=== PATIENT | male | born 1960 | race Caucasian/White ===

== ENCOUNTER 2019-11-14 20:39 | Observation (INO) | payer OTHER ==
--- NOTE | 2019-11-14 20:44 | PDOC ---
History of Present Illness - General Chief Complaint: Syncope/Near Syncope Stated Complaint: SYNCOPY Time Seen by Provider: 11/14/19 20:43 - History of Present Illness Initial Comments: 59 YOM h/o hypothyroidism, hyperlipidemia, and hypertension BIBEMS for witnessed fall. Per patients brother, after patient got off work today he was drinking smirnoff ice in a parking lot. The brother reports that he had between 3-4 drinks. At one point when he was leaning against a car, he suddenly became stiff, flexed his arms rigidly, lost consciousness and fell to his knees. His brother ran to him and held him underneath his arm. According to his brother the patient only fell to his knees, and did not strike his head. He lost consciou sness for a total of 30 seconds and then was awake but disoriented for approximately one minute after. Per EMS his blood pressure at the scene while seated was 126/76 and 96/60s while standing. His heart rate was 96. An EKG was performed in the ambulance showing normal sinus rythm. He received 150 mls saline en route. Speaking with the patient he mentions some back pain, pain in his knees bilate rally, as well as some pain in his right foot and ankle. He denies CP, SOB, N/V/D, or dizziness. Patient brought list of medications which read as follows: ASA Cetirizine Atorvastatin Levothyroxine Multivitamin Amlodipine Neproxen ezetimibe Past History - Medical History Allergies/Adverse Reactions: Allergies Allergy/AdvReac Type Severity Reaction Status Date / Time Penicillins Allergy Unknown Verified 07/16/15 09:30 Home Medications: Ambulatory Orders Acetaminophen W/ Codeine #3 [Tylenol # 3 -] 1 - 2 tab PO Q4H PRN #10 tablet MDD 6 07/16/15 Anemia: No Asthma: No Cancer: No HTN: Yes Hypercholesterolemia: Yes Thyroid Disease: Yes (hypothyroid) - Surgical History Abdominal Surgery: Yes (HERNIA.) - Psycho-Social/Smoking History Smoking History: Former smoker Have you smoked in the past 12 months: No If you are a former smoker, when did you quit?: 1999 Review of Systems - Review of Systems Able to Perform ROS?: Yes Constitutional: Yes: See HPI HEENTM: Yes: See HPI Respiratory: Yes: See HPI Cardiac (ROS): Yes: See HPI ABD/GI: Yes: See HPI : Yes: See HPI Musculoskeletal: Yes: See HPI Integumentary: Yes: See HPI Neurological: Yes: See HPI Endocrine: Yes: See HPI Hematologic/Lymphatic: Yes: See HPI *Physical Exam - Physical Exam General Appearance: Yes: Nourished, Appropriately Dressed, Obese HEENT: positive: EOMI, Normal Voice, Symmetrical Respiratory/Chest: positive: Lungs Clear, Normal Breath Sounds Cardiovascular: positive: Regular Rhythm, Regular Rate, S1, S2 Gastrointestinal/Abdominal: positive: Normal Bowel Sounds, Tender, Soft Musculoskeletal: positive: Other (Pain to palpation in knees bilaterally ) Neurologic: 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 Patient lost consciousness for approximately 30 seconds and was disoriented for up to one minute following regaining consciousness. His brother witnesses his fall reporting that he flexed his arms rigidly prior to collapsing to his knees. His brother reports that he did not hit his head. He mentions pain in both knees, right ankle, and some abdominal discomfort. He reports that he did not bite his tongue nor was he incontinent of stool or urine. His brother does not rely history consistent with post ictal state. Denies CP, SOB, N/V/D or dizziness. One week prior to arrival he had a similar episode however was not medically evaluated at the time. Physical exam was unremarkable except for swelling and pain in his knees bilaterally and some tenderness in his right ankle. On neuro exam cranial nerves were intact, sensation intact bilaterally, strength 5/5 bilaterally. Differential includes but is not limited to: Orthostatic syncope, Cardiogenic s yncope, new seizure, Abdominal Aortic Aneurysm vs Dissection. Plan: Labs, Lactate, PT/APTT, ECG. CXR, X ray knees bilaterally, Xray right ankle, CT head, CTA chest/abdomen/pelvis, US abdomen and FAST exam. 1 L NS for fluid resuscitation. Dispo: Will admit for further observation given history of 2 syncopal events in one week of unknown etiology. 11/14/19 23:31 Discharge - Discharge Information Problems reviewed: Yes Clinical Impression/Diagnosis: Syncope and collapse - Follow up/Referral - Patient Discharge Instructions - Post Discharge Activity
[2019-11-14 21:04] VITALS: BMI 34.0
[2019-11-14 22:05] LABS: BASO % 2.6 % (0-2.0); EOS % 2.5 % (0-4.5); HEMATOCRIT 42.9 % (35.4-49); HEMOGLOBIN 14.5 GM/dL (11.7-16.9); LYMPH % 19.8 % (8-40); MCHC 33.9 g/dl (32.0-35.9); MEAN CELL VOLUME 85.6 fl (80-96); MEAN PLT VOLUME 7.8 fl (7.5-11.1); MONO % 9.5 % (3.8-10.2); NEUT % 65.6 % (42.8-82.8); PLATELET COUNT 273 K/MM3 (134-434); RBC 5.01 M/mm3 (4.00-5.60); WHITE BLOOD COUNT 5.6 K/mm3 (4.0-10.0)
[2019-11-14 22:13] LABS: INR 1.04 (0.83-1.09); PROTHROMBIN TIME (PATIENT) 12.3 SEC (9.7-13.0)
[2019-11-14 22:15] LABS: ACTIVATED PTT 26.6 SECONDS (25.2-36.5)
--- NOTE | 2019-11-14 22:28 | PDOC ---
Documentation entered by Lizett Moctezuma SCRIBE, acting as scribe for Nicole Mcginnis MD. Nicole Mcginnis MD: This documentation has been prepared by the Jorge pickard Nirvannie, SCRIBE, under my direction and personally reviewed by me in its entirety. I confirm that the documentation accurately reflects all work, treatment, procedures, and medical decision making performed by me. Attending Attestation - Resident Resident Name: Andriy Harp - ED Attending Attestation I have performed the following: I have examined & evaluated the patient, The case was reviewed & discussed with the resident, I agree w/resident's findings & plan, Exceptions are as noted - HPI HPI: 11/14/19 22:38 The patient is a 59 year old male with a significant past medical history of hypothyroidism, hypertension, and hyperlipidemia who presents to the ED s/p episode of LOC. As per patient, he drank approximately 4 Smirnoff Ice in approximately 20 min then felt mild abdominal pain. Following the abdominal pain he endorses tensing up his upper extremities and bringing it close to his body then falling onto his right side, then knees, then left side. Patient was unconscious for approximately 1 min and the episode was witnessed by his brother who attempted to lower him to the ground. Patient was confused after this episode for a few min but, denies any bowel/urinary incontinence. Patient endorses a similar episode a week ago at which time he was walking then blacked out but, upon awakening that time he was fully orientated thus, he went straight home. Patient notes a family history of [place] in the 60s (EF 17: 68%). While in the ED, patient endorses bilateral knee and right ankle pain. - Physicial Exam PE: 11/14/19 22:11 awake alert NAD head atraumatic. no midline spinal tenderness. lungs clear bilat . heart rrr no mrg abd soft obese mild periumbilical ttp. no palp pulsatile mass. nd ext wwp. no edema. no calf tenderness. pulses symmetric pt awake alert oriented. bilat lower ext knee ttp. FROM. no laxity. hips bilat nontender. pelvis stable. right ankle TTP. pain with flex/ ext. no eccymosis or swelling noted. - Medical Decision Making 11/14/19 22:16 59 yo male h/o htn hld hypothyroid here today with syncope / seizure. per pt brother who witnessed event. pt had draink 4 etoh beverages over 20 min, was leaning against a car outside front of house. suddenly arms flexed, and he slid to right landedon his knees, then fell to his left. did have breif loc, was out for few min. no bowel or bladder incontinence. similar episode one week ago while walking. pt did not get evaluated at that time. no cp or sob. episode preciptiated by abd pain, periumbilical pain.. now also c/o bilat knee pain, and right ankle pain. denies drug use. on exam pt awake alert nonfocal nuero exam. lungs heart normal. mild left periumbilical ttp. differential traumatic ich , knee fx, ankle injury. concerns for synopce vs. seizure. ct head. labs ekg trop basic labs. will addlactic acid. iv hyrdaton. tox screen and etoh level. screening us fast performed. no free fluid. no aaa noted. Heart Score/ECG Review #1 General ECG Interpretation: Sinus Rhythm, Normal Rate (82), Normal Intervals, No acute ischemic changes Compared to previous ECG there are: Other (RBBB, TWI v1 - v3.) Discharge - Discharge Information Problems reviewed: Yes Clinical Impression/Diagnosis: Syncope and collapse Condition: Stable Disposition: HOME - Follow up/Referral - Patient Discharge Instructions - Post Discharge Activity
[2019-11-14 22:36] LABS: ALBUMIN 4.2 g/dl (3.4-5.0); ALK PHOS 74 U/L (45-117); ANION GAP 11 MMOL/L (8-16); BILIRUBIN,TOTAL 0.5 mg/dL (0.2-1); BLOOD UREA NITROGEN 17.6 mg/dL (7-18); CALCIUM 9.5 mg/dL (8.5-10.1); CHLORIDE 107 mmol/L (98-107); CO2 24 mmol/L (21-32); GLUCOSE,RANDOM 89 mg/dL (74-106); N-TERMINAL BNP 51.6 pg/ml (5-125); POTASSIUM 3.8 mmol/L (3.5-5.1); SGOT/AST 39 U/L (15-37); SGPT/ALT 65 U/L (13-61); SODIUM 142 mmol/L (136-145); TOT PROT 7.8 g/dl (6.4-8.2)
[2019-11-14] MEDS ORDERED: SODIUM CHLORIDE 0.9% 500 ML INFUS.BAG IV ONE (22:40)
--- NOTE | 2019-11-15 01:20 | HP ---
Admitting History and Physical - Primary Care Physician PCP: Brandon Marcelo - Admission Chief Complaint: Syncope History of Present Illness: This is a 59 y/o male with a PMHx of HTN, HLD, Hypothyroidism. Who presents to the ED via ambulance for syncope. The patient reports after work eating [employer] and having several Smirnoff ice drinks approx 3-4. The patient reports becoming lightheaded and passing out. Per the patient, his brother reported that he was stiff and rigid, losing consciousness for 30 seconds falling on his knees. Patient states" I did not hit my head" Patient denies any similar episodes in the past. Patient reports b/l knee pain. Patient denies CP, palpitations, VIEIRA, blurred vision or parasthesias. Patient denies fever, chills, cough, SOB, VIEIRA, AP, N/V/D, constipation, dysuria. Patient denies sick contacts or recent travel. 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 History of Recent Travel: No Home Medications - Allergies Allergies/Adverse Reactions: Allergies Allergy/AdvReac Type Severity Reaction Status Date / Time Penicillins Allergy Unknown Verified 07/16/15 09:30 - Home Medications Home Medications: Ambulatory Orders Acetaminophen W/ Codeine #3 [Tylenol # 3 -] 1 - 2 tab PO Q4H PRN #10 tablet MDD 6 07/16/15 Family Medical History Family History: Unremarkable Review of Systems - Review of Systems Constitutional: reports: No Symptoms Eyes: reports: No Symptoms HENT: reports: No Symptoms Neck: reports: No Symptoms Cardiovascular: reports: No Symptoms Respiratory: reports: No Symptoms Gastrointestinal: reports: No Symptoms Genitourinary: reports: No Symptoms Breasts: reports: No Symptoms Reported Musculoskeletal: reports: Joint Pain Integumentary: reports: No Symptoms Neurological: reports: Syncope Endocrine: reports: No Symptoms Hematology/Lymphatic: reports: No Symptoms Psychiatric: reports: No Symptoms Pain Intensity: 6 Physical Examination Vital Signs: Vital Signs Temperature 98.1 F 11/14/19 20:42 Pulse Rate 102 H 11/14/19 20:42 Respiratory Rate 11/14/19 20:42 Blood Pressure 144/81 11/14/19 20:42 O2 Sat by Pulse Oximetry (%) 96 11/14/19 22:21 Constitutional: Yes: Well Nourished, Mild Distress, Obese Eyes: Yes: WNL, Conjunctiva Clear, EOM Intact, PERRL HENT: Yes: WNL, Atraumatic, Normocephalic Neck: Yes: WNL, Supple, Trachea Midline Cardiovascular: Yes: WNL, Regular Rate and Rhythm, S1, S2 Respiratory: Yes: WNL, Regular, CTA Bilaterally Gastrointestinal: Yes: Normal Bowel Sounds, Soft, Abdomen, Obese ...Rectal Exam: Yes: Deferred Renal/: Yes: WNL Breast(s): Yes: WNL Musculoskeletal: Yes: Back Pain, Other (b/l knee pain) Extremities: Yes: WNL Edema: No Peripheral Pulses WNL: Yes Neurological: Yes: WNL, Alert, Oriented, Cran Nerves II-XII Intact ...Motor Strength: WNL Psychiatric: Yes: WNL, Alert, Oriented Labs: CBC, BMP 11/14/19 21:49 11/14/19 21:49 Laboratory Results - last 24 hr 11/14/19 11/14/19 11/14/19 21:49 21:49 21:49 WBC 5.6 RBC 5.01 Hgb 14.5 Hct 42.9 MCV 85.6 MCH 29.0 MCHC 33.9 RDW 15.0 Plt Count 273 MPV 7.8 Absolute Neuts (auto) 3.7 Neutrophils % 65.6 Lymphocytes % 19.8 Monocytes % 9.5 Eosinophils % 2.5 Basophils % 2.6 H Nucleated RBC % 0 PT with INR INR PTT (Actin FS) Sodium 142 Potassium 3.8 Chloride 107 Carbon Dioxide 24 Anion Gap 11 BUN 17.6 Creatinine 1.0 Est GFR (CKD-EPI)AfAm 93.73 Est GFR (CKD-EPI)NonAf 80.87 Random Glucose 89 Lactic Acid Calcium 9.5 Total Bilirubin 0.5 AST 39 H ALT 65 H Alkaline Phosphatase 74 Creatine Kinase 274 Creatine Kinase Index 0.6 CK-MB (CK-2) 1.7 Troponin I < 0.02 B-Natriuretic Peptide 51.6 Total Protein 7.8 Albumin 4.2 Alcohol, Quantitative < 3 11/14/19 11/14/19 21:49 22:15 WBC RBC Hgb Hct MCV MCH MCHC RDW Plt Count MPV Absolute Neuts (auto) Neutrophils % Lymphocytes % Monocytes % Eosinophils % Basophils % Nucleated RBC % PT with INR 12.30 INR 1.04 PTT (Actin FS) 26.6 Sodium Potassium Chloride Carbon Dioxide Anion Gap BUN Creatinine Est GFR (CKD-EPI)AfAm Est GFR (CKD-EPI)NonAf Random Glucose Lactic Acid 1.8 Calcium Total Bilirubin AST ALT Alkaline Phosphatase Creatine Kinase Creatine Kinase Index CK-MB (CK-2) Troponin I B-Natriuretic Peptide Total Protein Albumin Alcohol, Quantitative Intake & Output 11/12/19 11/13/19 11/14/19 11/15/19 23:59 23:59 23:59 23:59 Weight 104.326 kg Imaging - Results Chest X-ray: Image Reviewed X-ray: Image Reviewed Cat Scan: Report Reviewed, Image Reviewed EKG: Image Reviewed Problem List - Problems (1) Syncope and collapse Assessment/Plan: Likely secondary to Arrhythmia vs Dehydration Continue cardiac monitoring Head CT- reviewed no acute ICH EKG- NSR, RBBB, inferior infarct age undetermined Appreciate Cardiology consult Serial Enzymes Carotid Doppler-pending UDT-pending CBC, CMP, Lipid Profile, Mg, TSH in am Orthostatics Fall Precautions Code(s): R55 - SYNCOPE AND COLLAPSE (2) HTN (hypertension) Assessment/Plan: Stable Monitor BP Continue home med when verified, pt does not recall Monitor CMP Code(s): I10 - ESSENTIAL (PRIMARY) HYPERTENSION (3) HLD (hyperlipidemia) Assessment/Plan: stable Will need to verify home med with home pharmacy tomorrow (pt does not know home med) Code(s): E78.5 - HYPERLIPIDEMIA, UNSPECIFIED (4) Hypothyroidism Assessment/Plan: TSH in am Will need to verify home med tomorrow with pts home pharmacy Code(s): E03.9 - HYPOTHYROIDISM, UNSPECIFIED Assessment/Plan This is a 59 y/o male with a PMHx of HTN, HLD, Hypothyroidism. Placed in T elemetry Observation for Syncope for further evaluation of their emergent condition. Plan: See Problem List FEN PO fluids as tolerated Replete lytes prn Low Na, Low Cholesterol Diet DVT ppx OOB SCDs Consider AC if LOS> 48 hrs Dispo: Observation Visit type - Emergency Visit Emergency Visit: Yes ED Registration Date: 11/14/19 Care time: The patient presented to the Emergency Department on the above date and was hospitalized for further evaluation of their emergent condition. - New Patient This patient is new to me today: Yes Date on this admission: 11/15/19 - Critical Care Critical Care patient: No
[2019-11-15] MEDS ORDERED: LIDOCAINE 5% TOPICAL PATCH TP ONE (02:40)
[2019-11-15] MEDS ORDERED: LIDOCAINE 5% TOPICAL PATCH ONE (03:26)
[2019-11-15] MEDS: ACETAMINOPHEN 325 MG TABLET (FP) PO PRN (03:32)
[2019-11-15 07:54] LABS: EOS % 3.2 % (0-4.5); HEMATOCRIT 40.7 % (35.4-49); HEMOGLOBIN 13.6 GM/dL (11.7-16.9); LYMPH % 15.6 % (8-40); MCH 28.5 pg (25.7-33.7); MCHC 33.4 g/dl (32.0-35.9); MEAN CELL VOLUME 85.4 fl (80-96); MEAN PLT VOLUME 7.6 fl (7.5-11.1); MONO % 8.5 % (3.8-10.2); NEUT % 71.7 % (42.8-82.8); PLATELET COUNT 222 K/MM3 (134-434); RBC 4.77 M/mm3 (4.00-5.60); WHITE BLOOD COUNT 7.1 K/mm3 (4.0-10.0)
[2019-11-15 08:03] LABS: COCAINE, UR NEGATIVE ng/ml (CUTOFF=300); METHADONE, UR NEGATIVE ng/ml (CUTOFF=300); OPIATES, URI NEGATIVE ng/ml (CUTOFF=300); PHENCYCLIDINE,URINE NEGATIVE ng/ml (CUTOFF=25); URINE AMPHETAMINES NEGATIVE ng/ml (CUTOFF=500); URINE BARBITURATES NEGATIVE ng/ml (CUTOFF=200); URINE BENZODIAZEPINES NEGATIVE ng/ml (CUTOFF=200)
[2019-11-15 08:12] LABS: URINE APPEARANCE CLEAR; URINE BILIRUBIN NEGATIVE (NEGATIVE); URINE COLOR YELLOW; URINE GLUCOSE (UA) NEGATIVE (NEGATIVE); URINE KETONE NEGATIVE (NEGATIVE); URINE LEUK ESTERASE NEGATIVE (NEGATIVE); URINE NITRITE NEGATIVE (NEGATIVE); URINE PROTEIN NEGATIVE (NEGATIVE); URINE UROBILINOGEN 0.2 mg/dL (0.2-1.0)
[2019-11-15 08:13] LABS: ALBUMIN 3.9 g/dl (3.4-5.0); ALK PHOS 71 U/L (45-117); ANION GAP 6 MMOL/L (8-16); BILIRUBIN,TOTAL 0.8 mg/dL (0.2-1); CHLORIDE 108 mmol/L (98-107); CO2 25 mmol/L (21-32); CREATININE 0.9 mg/dL (0.55-1.3); GLUCOSE,RANDOM 101 mg/dL (74-106); MAGNESIUM 2.5 mg/dL (1.8-2.4); SGOT/AST 30 U/L (15-37); SGPT/ALT 57 U/L (13-61); SODIUM 140 mmol/L (136-145); TOT PROT 7.3 g/dl (6.4-8.2)
[2019-11-15 08:14] LABS: CHOLESTEROL 204 mg/dL (50-200); LDL CHOLESTEROL (ONLY SJRH) 119 mg/dL (5-100); TRIGLYCERIDES 235 mg/dL (0-150)
[2019-11-15 08:15] LABS: HDL CHOLESTEROL 44 mg/dL (40-60)
--- NOTE | 2019-11-15 10:56 | PN ---
Progress Note, Physician History of Present Illness: 59 y/o male with a PMHx of HTN, HLD, Hypothyroidism. Who presents to the ED via ambulance for syncope. The patient reports after work eating [employer] and having several Smirnoff ice drinks approx 3-4. The patient reports becoming lightheaded and passing out. Per the patient, his brother reported that he was stiff and rigid, losing consciousness for 30 seconds falling on his knees. Patient states" I did not hit my head" Patient denies any similar episodes in the past. Patient reports b/l knee pain. Patient denies CP, palpitations, VIEIRA, blurred vision or parasthesias. Patient denies fever, chills, cough, SOB, VIEIRA, AP, N/V/D, constipation, dysuria. Patient denies sick contacts or recent travel. - Current Medication List Current Medications: Active Medications Acetaminophen (Tylenol -) 650 mg PO Q6H PRN PRN Reason: PAIN LEVEL 6-10 Last Admin: 11/15/19 03:32 Dose: 650 mg Documented by: Miscellaneous (Lidoderm Patch Removal) 1 each DAILY@2200 [facility] - Objective Vital Signs: Vital Signs Temperature 98.2 F 11/15/19 05:07 Pulse Rate 64 11/15/19 05:07 Respiratory Rate 16 11/15/19 05:07 Blood Pressure 126/81 11/15/19 05:07 O2 Sat by Pulse Oximetry (%) 96 11/15/19 05:07 Labs: CBC, BMP 11/15/19 07:05 11/15/19 07:05 INR, PTT INR 1.04 (0.83-1.09) 11/14/19 21:49 Problem List - Problems (1) Syncope and collapse Assessment/Plan: R/O Arrhythmia Continue cardiac monitoring Head CT- reviewed no acute ICH EKG- NSR, RBBB, inferior infarct age undetermined Cardiology consult Serial Enzymes Carotid Doppler-pending Orthostatics Selected Entries 11/15/19 02:32 Blood Pressure 144/91 [Sitting] Blood Pressure 128/76 [Standing] Blood Pressure 135/78 [Supine] Fall Precautions Code(s): R55 - SYNCOPE AND COLLAPSE (2) HLD (hyperlipidemia) Code(s): E78.5 - HYPERLIPIDEMIA, UNSPECIFIED (3) HTN (hypertension) Assessment/Plan: Stable Monitor BP Code(s): I10 - ESSENTIAL (PRIMARY) HYPERTENSION (4) Hypothyroidism Assessment/Plan: VERIFY DOSE Code(s): E03.9 - HYPOTHYROIDISM, UNSPECIFIED
[2019-11-15] MEDS: ASPIRIN COATED 81 MG TABLET.EC PO SCH (11:06)
[2019-11-15] MEDS ORDERED: ASPIRIN COATED 81 MG TABLET.EC ONE (11:07)
--- NOTE | 2019-11-15 14:03 | EKG ---
Test Reason : Blood Pressure : / mmHG Vent. Rate : 082 BPM Atrial Rate : 082 BPM P-R Int : 170 ms QRS Dur : 144 ms QT Int : 446 ms P-R-T Axes : 023 019 012 degrees QTc Int : 521 ms NORMAL SINUS RHYTHM RIGHT BUNDLE BRANCH BLOCK INFERIOR INFARCT , AGE UNDETERMINED ABNORMAL ECG NO PREVIOUS ECGS AVAILABLE Confirmed by HIEN RANDOLPH MD ([id number]) on 11/15/2019 2:03:20 PM Referred By: Confirmed By:HIEN RANDOLPH MD
--- NOTE | 2019-11-15 15:27 | CON.CARD ---
Consult Consult Specialty:: Cardiology Referred by:: Dr. Valle Reason for Consultation:: Syncope - History of Present Illness Chief Complaint: Syncope History of Present Illness: 59 year old man with pmh HTN, HLD, hypothyroid admitted with syncope. Pt seen and examined today in nad. awake, alert, oriented. states that after work yesterday he began drinking [employer] drinks and had 3 or 4 first with dinner then he walked outside. he was leaning against a car and then the next thing he knows he woke up with his family calling EMS. He denies any symptoms prior to losing consciousness. He denies any lightheadedness, dizziness. no chest pain or sob. he does admit to abdominal discomfort. Denies ever losing consciousness before. states that 1 week ago he had a mechanical fall where he twisted his ankle then fell and was assisted up by a bystander but denies LOC. 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 History of Recent Travel: No Home Medications - Allergies Allergies/Adverse Reactions: Allergies Allergy/AdvReac Type Severity Reaction Status Date / Time Penicillins Allergy Unknown Verified 11/15/19 07:32 - Home Medications Home Medications: Ambulatory Orders Amlodipine Besylate 11/15/19 Aspirin 11/15/19 Atorvastatin Calcium 11/15/19 Ezetimibe 11/15/19 Levothyroxine 11/15/19 Multivit-Minerals 11/15/19 Naproxen 11/15/19 Zyrtec - 11/15/19 Family Medical History Family History: Denies Review of Systems - Review of Systems Constitutional: reports: No Symptoms Eyes: reports: No Symptoms HENT: reports: No Symptoms Neck: reports: No Symptoms Cardiovascular: reports: No Symptoms Respiratory: reports: No Symptoms Gastrointestinal: reports: No Symptoms Genitourinary: reports: No Symptoms Breasts: reports: No Symptoms Reported Musculoskeletal: reports: No Symptoms Integumentary: reports: No Symptoms Neurological: reports: Syncope Endocrine: reports: No Symptoms Hematology/Lymphatic: reports: No Symptoms Psychiatric: reports: No Symptoms - Risk Factors Known Risk Factors: Yes: Hypercholesterolemia, Hypertension Vital Signs: Vital Signs Temperature 98.2 F 11/15/19 05:07 Pulse Rate 78 11/15/19 14:59 Respiratory Rate 15 11/15/19 14:59 Blood Pressure 132/86 11/15/19 14:59 O2 Sat by Pulse Oximetry (%) 98 11/15/19 14:59 Constitutional: Yes: No Distress, Calm, Obese Eyes: Yes: WNL, Conjunctiva Clear, EOM Intact HENT: Yes: WNL, Atraumatic, Normocephalic Neck: Yes: WNL, Supple, Trachea Midline Respiratory: Yes: WNL, Regular, CTA Bilaterally. No: Rales, Rhonchi, SOB, Wheezes Gastrointestinal: Yes: WNL, Normal Bowel Sounds, Soft. No: Distention, Tenderness Cardiovascular: Yes: Regular Rate and Rhythm. No: Bradycardia, Tachycardia, Pulse Irregular, Gallop, Rub, Varicosities JVD: No Carotid Bruit: No PMI: Non-Displaced Heart Sounds: Yes: S1, S2. No: Split S2, S3, S4, Clicks, Gallop, Rub, Bruit Murmur: No: Systolic Murmur, Diastolic Murmur Musculoskeletal: Yes: WNL Extremities: Yes: WNL Edema: No Peripheral Pulses WNL: Yes Peripheral Pulses: 2+ Left Doralis Pedis, 2+ Right Dorsalis Pedis Neurological: Yes: Alert, Oriented Psychiatric: Yes: Alert, Oriented - Other Data Labs, Other Data: CBC, BMP 11/15/19 07:05 11/15/19 07:05 INR, PTT INR 1.04 (0.83-1.09) 11/14/19 21:49 Troponin, BNP 11/14/19 11/15/19 11/15/19 21:49 07:05 12:00 Troponin I < 0.02 < 0.02 < 0.02 B-Natriuretic Peptide 51.6 Troponin, BNP 11/14/19 11/15/19 11/15/19 21:49 07:05 12:00 Troponin I < 0.02 < 0.02 < 0.02 B-Natriuretic Peptide 51.6 nsr RBBB, inferior infarct age undetermined. RBBB not new, noted as far back as 2012 Imaging - Results Chest X-ray: Report Reviewed, Image Reviewed EKG: Report Reviewed, Image Reviewed Other: Report Reviewed, Image Reviewed (tele-no sig arrhythmias) Assessment/Plan 59 year old man with pmh HTN, HLD, hypothyroid admitted with syncope. states that after work yesterday he began drinking [employer] drinks and had 3 or 4 first with dinner then he walked outside. he was leaning against a car and then the next thing he knows he woke up with his family calling EMS. He denies any symptoms prior to losing consciousness. He denies any lightheadedness, dizziness. no chest pain or sob. he does admit to abdominal discomfort. Denies ever losing consciousness before. states that 1 week ago he had a mechanical fall where he twisted his ankle then fell and was assisted up by a bystander but denies LOC. Syncope-unlikely cardiac in origin -possibly related to etoh, being outside in hot temperature and abdominal discomfort leading to vasovagal syncope -EKG nsr rbbb, inferior infarct, no sig changes dating back to 2012 -monitor tele -check echo -check orthostatic BP will follow
[2019-11-15] MEDS ORDERED: ATORVASTATIN CA 20 MG TABLET (FP) ONE (22:08)
[2019-11-15] MEDS: LIDOCAINE PATCH REMOVAL MC SCH (22:28)
[2019-11-15] MEDS: ATORVASTATIN CA 20 MG TABLET (FP) PO SCH (22:28)
[2019-11-16] MEDS: LEVOTHYROXINE NA 50 MCG TABLET (FP) PO SCH (06:27)
[2019-11-16] MEDS: ASPIRIN COATED 81 MG TABLET.EC PO SCH (09:02)
[2019-11-16] MEDS: ACETAMINOPHEN 325 MG TABLET (FP) PO PRN (09:04)
--- NOTE | 2019-11-16 09:28 | PN ---
Progress Note, Physician - Current Medication List Current Medications: Active Medications Acetaminophen (Tylenol -) 650 mg PO Q6H PRN PRN Reason: PAIN LEVEL 6-10 Last Admin: 11/16/19 09:04 Dose: 650 mg Documented by: Aspirin (Ecotrin -) 81 mg PO DAILY [facility] Last Admin: 11/16/19 09:02 Dose: 81 mg Documented by: Atorvastatin Calcium (Lipitor -) 20 mg PO HS [facility] Last Admin: 11/15/19 22:28 Dose: 20 mg Documented by: Levothyroxine Sodium (Synthroid -) 50 mcg PO DAILY@0700 [facility] Last Admin: 11/16/19 06:27 Dose: 50 mcg Documented by: Miscellaneous (Lidoderm Patch Removal) 1 each MC DAILY@0 [facility] Last Admin: 11/15/19 22:28 Dose: 1 each Documented by: - Objective Vital Signs: Vital Signs Temperature 98 F 11/16/19 09:00 Pulse Rate 72 11/16/19 09:00 Respiratory Rate 18 11/16/19 09:00 Blood Pressure 150/92 11/16/19 09:00 O2 Sat by Pulse Oximetry (%) 95 11/16/19 00:00 Cardiovascular: Yes: Regular Rate and Rhythm Respiratory: Yes: Regular, CTA Bilaterally Gastrointestinal: Yes: Normal Bowel Sounds, Soft. No: Tenderness Edema: No Neurological: Yes: Alert, Oriented Labs: CBC, BMP 11/15/19 07:05 11/15/19 07:05 INR, PTT INR 1.04 (0.83-1.09) 11/14/19 21:49 Problem List - Problems (1) Syncope and collapse Assessment/Plan: Neuro pending R/O Arrhythmia Continue cardiac monitoring Head CT- reviewed no acute ICH EKG- NSR, RBBB, inferior infarct age undetermined Cardiology consult appreciated Serial Enzymes negative Carotid Doppler-notes Orthostatics Selected Entries 11/15/19 02:32 Blood Pressure 144/91 [Sitting] Blood Pressure 128/76 [Standing] Blood Pressure 135/78 [Supine] Fall Precautions Code(s): R55 - SYNCOPE AND COLLAPSE (2) HLD (hyperlipidemia) Code(s): E78.5 - HYPERLIPIDEMIA, UNSPECIFIED (3) HTN (hypertension) Code(s): I10 - ESSENTIAL (PRIMARY) HYPERTENSION (4) Hypothyroidism Code(s): E03.9 - HYPOTHYROIDISM, UNSPECIFIED
--- NOTE | 2019-11-16 12:56 | PN ---
Progress Note, Physician Chief Complaint: Syncope History of Present Illness: This is a 59 year old male with a PMH of HTN, HLD, and hypothyroidism. After several alcoholic drinks, he went for a walk outside, was leaning against a car and then the next thing he knows he woke up with his family calling EMS. No previous syncopal events. Troponin negative. EKG nsr rbbb, inferior infarct, no sig changes dating back to 2012 - Current Medication List Current Medications: Active Medications Acetaminophen (Tylenol -) 650 mg PO Q6H PRN PRN Reason: PAIN LEVEL 6-10 Last Admin: 11/16/19 09:04 Dose: 650 mg Documented by: Aspirin (Ecotrin -) 81 mg PO DAILY [facility] Last Admin: 11/16/19 09:02 Dose: 81 mg Documented by: Atorvastatin Calcium (Lipitor -) 20 mg PO HS [facility] Last Admin: 11/15/19 22:28 Dose: 20 mg Documented by: Levothyroxine Sodium (Synthroid -) 50 mcg PO DAILY@0700 [facility] Last Admin: 11/16/19 06:27 Dose: 50 mcg Documented by: Miscellaneous (Lidoderm Patch Removal) 1 each MC DAILY@2200 [facility] Last Admin: 11/15/19 22:28 Dose: 1 each Documented by: - Objective Vital Signs: Vital Signs Temperature 98 F 11/16/19 09:00 Pulse Rate 72 11/16/19 09:00 Respiratory Rate 18 11/16/19 09:00 Blood Pressure 150/92 11/16/19 09:00 O2 Sat by Pulse Oximetry (%) 95 11/16/19 00:00 Constitutional: Yes: No Distress Eyes: Yes: WNL HENT: Yes: WNL Neck: Yes: WNL Cardiovascular: Yes: Regular Rate and Rhythm, S1, S2 Respiratory: Yes: CTA Bilaterally Gastrointestinal: Yes: Soft Edema: No Neurological: Yes: Alert, Oriented Labs: CBC, BMP 11/15/19 07:05 11/15/19 07:05 INR, PTT INR 1.04 (0.83-1.09) 11/14/19 21:49 Assessment/Plan 59 year old male with a PMH of HTN, HLD, and hypothyroidism. After several alcoholic drinks, he went for a walk outside, was leaning against a car and then the next thing he knows he woke up with his family calling EMS. No previous syncopal events. Troponin negative. EKG nsr rbbb, inferior infarct, no sig changes dating back to 2012 Syncope more likely to be related to ETOH, outside in the heat, then a cardiac arrhythmia. Carotid Doppler small, minimal plaque Would obtain an Echocardiogram (can be done as an outpatient)
--- NOTE | 2019-11-16 20:33 | CONSULT ---
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 When he stood up he became lightheaded. His brother described palor, "stiffening" and LOC x 30 seconds (while he held him up by hooking arms under patient's.) Patient was "confused x 1 min but was aware of diaphoreis. Orthostatic BP's noted by EMS (Standing BP 96/60) and in the ED. 1 week prior patients tripped and fell without prodromal symptoms or LOC while carrying home his mother's groceries. CT of head (reviewed): Normal. Calcified basilar artery Carotid duplex: Small plaques in Carotid bulbs, B/L TSH=12.2 Dncm=852. TG's=235. ABBE: Obese. No bruits. Cor reg. No head trauma. Scrapes and swelling both knees NEURO: Ox Saturday. Mild static encephalopathy CN: Normal aside from coarse, horizontal conjugate nystagmus on left gaze. Motor: No drift or tremor. Normal strength. Areflexic? Toes downgoing Coord: No FTN dystaxia Sensory: Reduced vibration both feet. Romberg + Gait: Wide based and somewhat unstead with turns. IMP: Non-focal exam sig for possible peripheral neuropathy. Syncope with features of orthostatic hypotension, worsened by dehydration, ETOH Possible dysautonomia associated with the neuropathy? Exacerbated by toxic-metabolic encephalopathy (Hypothyroidism/Myxedema). Probable non-compliance with medications SUGGEST: Continue to follow orthothatic BP's Normalize thyroid function. Check TSH, Glycosylated hemoglobin A1-C, CK PT for assessment of gait and balance and Rx if indicated. Neuro f/u for w/u of neuropathy Thank you very much, Ágnel Alonso MD
[2019-11-16] MEDS: ATORVASTATIN CA 20 MG TABLET (FP) PO SCH (21:51)
[2019-11-16] MEDS: LIDOCAINE PATCH REMOVAL MC SCH (21:52)
[2019-11-17] MEDS: LEVOTHYROXINE NA 50 MCG TABLET (FP) PO SCH (06:00)
[2019-11-17 08:45] VITALS: BP 142/88; PULSE 78; TEMP 98.1
[2019-11-17] MEDS: ASPIRIN COATED 81 MG TABLET.EC PO SCH (09:02)
--- NOTE | 2019-11-17 09:48 | DS ---
Physical Examination Vital Signs: Vital Signs Temperature 98.1 F 11/17/19 08:43 Pulse Rate 78 11/17/19 08:43 Respiratory Rate 18 11/17/19 08:43 Blood Pressure 142/88 11/17/19 08:43 O2 Sat by Pulse Oximetry (%) 94 L 11/17/19 08:37 Labs: CBC, BMP 11/15/19 07:05 11/15/19 07:05 Discharge Summary Problems reviewed: Yes Reason For Visit: SYNCOPY AND COLLAPSE Current Active Problems HLD (hyperlipidemia) (Acute) HTN (hypertension) (Acute) Hypothyroidism (Acute) Syncope and collapse (Acute) - Instructions Referrals: Brandon Marcelo [Primary Care Provider] - - Home Medications Comprehensive Discharge Medication List: Ambulatory Orders Acetaminophen ER 650 mg PO TID PRN 11/15/19 Aspirin 81 mg PO DAILY 11/15/19 Atorvastatin Calcium 40 mg PO DAILY 11/15/19 Ezetimibe 10 mg PO DAILY 11/15/19 Levothyroxine 200 mcg PO DAILY 11/15/19 Multivit-Minerals 1 tab PO DAILY 11/15/19 Amlodipine Besylate [Norvasc -] 5 mg PO DAILY #30 tablet 11/17/19
[2019-11-17] MEDS ORDERED: amLODIPine BESYLATE 5 MG TABLET (FP) PO SCH (10:00)
[2019-11-17] MEDS ORDERED: EZETIMIBE 10 MG TABLET (FP) PO SCH (10:00)
[2019-11-17] MEDS ORDERED: PATIENT'S OWN MEDICATION (NON-FORMULARY) (Aspirin 81 MG) PO SCH (10:00)
[2019-11-17] MEDS ORDERED: LEVOTHYROXINE NA 100 MCG TABLET (FP) PO SCH (10:00)
[2019-11-17] MEDS ORDERED: ATORVASTATIN CA 40 MG TABLET (FP) PO SCH (22:00)
[2019-11-18] MEDS ORDERED: LEVOTHYROXINE NA 100 MCG TABLET (FP) PO SCH (07:00)
== END 2019-11-17 12:18 | disposition home or self-care (01) ==
LOC: JER 20:39 → SUPCPDRO 20:39 → JERBED 11-15 06:39 → J4W 11-15 23:22
PROVIDERS: ADMIT Internal Medicine; ATTEND Family Medicine
PROC: 3E0337Z Introduction of Electrolytic and Water Balance Substance into Peripheral Vein, Percutaneous Approach (ICD-10-PCS; principal; 2019-11-15)
DX: R55 Syncope and collapse (principal); E78.5 Hyperlipidemia, unspecified; I10 Essential (primary) hypertension; E03.9 Hypothyroidism, unspecified; Z88.0 Allergy status to penicillin; Z79.82 Long term (current) use of aspirin; W18.39XA Other fall on same level, initial encounter; Y93.89 Activity, other specified; Y92.89 Other specified places as the place of occurrence of the external cause; E66.9 Obesity, unspecified; Z68.35 Body mass index [BMI] 35.0-35.9, adult; Z87.891 Personal history of nicotine dependence
CPT/HCPCS: 36415; 70450-TC; 71046-TC-FY; 71275-TC; 73562-TC-LT-FY; 73562-TC-RT-FY; 73610-TC-RT-FY; 73630-TC-RT-FY; 74174-TC; 80053; 80061; 80307; 81003; 82550; 82553; 82607; 83036; 83605; 83721; 83735; 83880; 84436; 84443; 84484; 85025; 85610; 85730; 93005; 93010; 93880-TC; 99285-25; G0378; Q9967; U0003

== ENCOUNTER 2023-05-06 22:18 | Emergency (ER) | payer OTHER ==
[2023-05-06 22:30] VITALS: BMI 30.4
[2023-05-07 00:54] LABS: BASO % 0.6 % (0-2.0); HEMATOCRIT 40.8 % (35.4-49); LYMPH % 5.9 % (8-40); MCH 28.7 pg (25.7-33.7); MCHC 34.3 g/dl (32.0-35.9); MEAN CELL VOLUME 83.9 fl (80-96); MEAN PLT VOLUME 6.8 fl (7.5-11.1); MONO % 8.2 % (3.8-10.2); NEUT % 85.3 % (42.8-82.8); PLATELET COUNT 257 10^3/uL (134-434); RBC 4.87 M/mm3 (4.00-5.60); RDW 15.3 % (11.9-15.9); WHITE BLOOD COUNT 12.3 K/mm3 (4.0-10.0)
[2023-05-07 01:01] LABS: POTASSIUM 3.6 mmol/L (3.5-5.1)
[2023-05-07 01:04] LABS: ALBUMIN 3.7 g/dl (3.4-5.0); BLOOD UREA NITROGEN 23.1 mg/dL (7-18); CALCIUM 9.7 mg/dL (8.5-10.1)
[2023-05-07 01:07] LABS: CREATININE 1.4 mg/dL (0.55-1.3)
[2023-05-07 01:09] LABS: BILIRUBIN,TOTAL 0.9 mg/dL (0.2-1); TOT PROT 8.1 g/dl (6.4-8.2)
[2023-05-07] MEDS ORDERED: ACETAMINOPHEN 500 MG TABLET (FP) PO ONE (01:44)
[2023-05-07] MEDS ORDERED: ACETAMINOPHEN 325 MG TABLET (FP) ONE (01:51)
[2023-05-07 02:55] LABS: URINE APPEARANCE TURBID; URINE COLOR YELLOW; URINE GLUCOSE (UA) NEGATIVE (NEGATIVE)
[2023-05-07 02:56] LABS: PH,URINE 5.5 (5.0-8.0); URINE BILIRUBIN NEGATIVE (NEGATIVE); URINE KETONE NEGATIVE (NEGATIVE); URINE LEUK ESTERASE 3+ (NEGATIVE); URINE NITRITE POSITIVE (NEGATIVE); URINE PROTEIN 100 (NEGATIVE); URINE UROBILINOGEN 0.2 mg/dL (0.2-1.0)
[2023-05-07 03:52] VITALS: RESP 16
[2023-05-07 05:05] VITALS: BP 122/72; PULSE 87; TEMP 98.3
== END 2023-05-07 05:06 | disposition short-term general hospital (02) ==
LOC: JER 22:18
DX: M79.661 Pain in right lower leg (principal); M79.662 Pain in left lower leg; R10.9 Unspecified abdominal pain; R53.1 Weakness; R32 Unspecified urinary incontinence; R68.83 Chills (without fever); R35.0 Frequency of micturition; Z20.822 Contact with and (suspected) exposure to COVID-19
CPT/HCPCS: 0241U-QW; 36415; 70450-TC; 80053; 81003; 84484; 85025; 87086; 87186; 93005; 93010; 99285-25